=== PATIENT | female | born 1995 | race Caucasian/White ===

== ENCOUNTER 2025-03-23 19:10 | Emergency (ER) | payer BC ==
--- NOTE | 2025-03-23 19:41 | ED ---
Abdominal Pain HPI - General Chief Complaint: Abdominal Pain Stated Complaint: Abd pain Time Seen by Provider: 03/23/25 19:16 Source: patient Mode of arrival: ambulatory Limitations: no limitations - History of Present Illness Initial Comments: 29-year-old female presented with chief complaint of abdominal pain. Patient reports that she had sharp right sided pain that lasted for about 30 minutes. This was a sharp and stabbing pain. She was feeling a bit nauseous while she was having the pain. No diarrhea or constipation or changes in bowel movements. No vomiting. No chest pain or difficulty breathing. No history of abdominal surgeries. Denies . - Related Data Allergies Allergy/AdvReac Type Severity Reaction Status Date / Time latex Allergy Rash/Hives Verified 03/23/25 19:14 Review of Systems ROS Statement: Those systems with pertinent positive or pertinent negative responses have been documented in the HPI. ROS Other: All systems not noted in ROS Statement are negative. Past Medical History Past Medical History: No Reported History History of Any Multi-Drug Resistant Organisms: None Reported Past Surgical History: No Surgical Hx Reported Past Psychological History: No Psychological Hx Reported Smoking Status: Never smoker Past Alcohol Use History: Rare Past Drug Use History: None Reported General Exam Limitations: no limitations General appearance: alert, in no apparent distress Head exam: Present: atraumatic, normocephalic, normal inspection Eye exam: Present: normal appearance, EOMI Neck exam: Present: normal inspection. Absent: meningismus Respiratory exam: Present: normal lung sounds bilaterally. Absent: respiratory distress, wheezes, rales, rhonchi, stridor Cardiovascular Exam: Present: regular rate, normal rhythm, normal heart sounds. Absent: systolic murmur, diastolic murmur, rubs, gallop, clicks GI/Abdominal exam: Present: soft. Absent: distended, tenderness, guarding, rebound, rigid Neurological exam: Present: alert, oriented X3 Psychiatric exam: Present: normal affect, normal mood Skin exam: Present: warm, dry, normal color Course Vital Signs 03/23/25 03/24/25 19:12 01:00 Temperature 98.2 F 98.7 F Pulse Rate 84 66 Respiratory 18 16 Rate Blood Pressure 143/86 110/83 O2 Sat by Pulse 100 98 Oximetry Medical Decision Making - Medical Decision Making Was pt. sent in by a medical professional or institution (, PA, [employer]PERATOR, urgent care, hospital, or jail...) When possible be specific @ -No Did you speak to anyone other than the patient for history (EMS, parent, family, police, friend...)? What history was obtained from this source @ -No Did you review nursing and triage notes (agree or disagree)? Why? @ -I reviewed and agree with nursing and triage notes Were old charts reviewed (outside hosp., previous admission, EMS record, old EKG, old radiological studies, urgent care reports/EKG's, jail records)? Report findings @ -No old charts were reviewed Differential Diagnosis (chest pain, altered mental status, abdominal pain women, abdominal pain men, vaginal bleeding, weakness, fever, dyspnea, syncope, headache, dizziness, GI bleed, back pain, seizure, CVA, palpatations, mental health, musculoskeletal)? @ -MDM Differential Abdominal Pain Women: Appendicitis, Cholecystitis, diverticulosis, ischemic bowel, pancreatitis, hepatitis, UTI, gastroenteritis, AAA, incarcerated hernia, bowel obstruction, constipation, inflammatory bowel, hepatitis, peptic ulcer disease, splenic infarction, perforated viscus, vulvitis, ovarian torsion, PID, kidney stone, placenta abruption... This is not meant to be an all-inclusive list EKG interpreted by me (3pts min.). @ -As above X-rays interpreted by me (1pt min.). @ -None done CT interpreted by me (1pt min.). @ -CT shows heterogenous enhancing soft tissue mass seen in the left adnexa. Given this appearance finding may relate to an ovarian torsion versus other neoplastic lesion. Correlate with clinical evaluation. To evaluate rule out ovarian torsion and pelvic ultrasound recommended. If torsion is ruled out finding will need to be properly characterized for which an MRI abdomen and pelvis with IV contrast would be the best initial study for this. No other acute intra-abdominal/pelvic abnormality identified. U/S interpreted by me (1pt. min.). @ -Ultrasound shows no sonographic evidence for acute right upper quadrant abdominal process Pelvic ultrasound shows left adnexal lesion identified on comparison CT corresponds to a pedunculated left fundal fibroid What testing was considered but not performed or refused? (CT, X-rays, U/S, labs)? Why? @ -None What meds were considered but not given or refused? Why? @ -None Did you discuss the management of the patient with other professionals (professionals i.e. DrSonny, PA, [employer]PERATOR, lab, RT, psych nurse, executive secretary social welfare, delivery director, teacher, ship's electronic warfare officer, nurse case manager)? Give summary @ -Radiologist Dr. Benton called and spoke with me regarding CT findings Was smoking cessation discussed for >3mins.? @ -No Was critical care preformed (if so, how long)? @ -No Were there social determinants of health that impacted care today? How? (Homelessness, low income, unemployed, alcoholism, drug addiction, transportation, low edu. Level, literacy, decrease access to med. care, group home, rehab)? @ -No Was there de-escalation of care discussed even if they declined (Discuss DNR or withdrawal of care, Hospice)? DNR status @ -No What co-morbidities impacted this encounter? (DM, HTN, Smoking, COPD, CAD, Cancer, CVA, ARF, Chemo, Hep., AIDS, mental health diagnosis, sleep apnea, morbid obesity)? @ -None Was patient admitted / discharged? Hospital course, mention meds given and route, prescriptions, significant lab abnormalities, going to OR and other pertinent info. @ -29-year-old female presenting chief complaint of right-sided abdominal pain. History physical examination are conducted. She states that the pain is not present at this time and abdomen is soft, nontender, nondistended. Lab work shows no leukocytosis or anemia. Amylase and lipase are WNL. Urine shows no infectious process or bleeding, there are signs of contamination. Negative hCG. Initially it appeared that the patient was having right upper quadrant pain earlier so ultrasound was obtained which showed no acute process. On reassessment patient clarified that it seems to be more in the right lower quadrant so CT was obtained. It was a concerning left-sided adnexal mass seen on CT we obtained a pelvic ultrasound which was negative for torsion. Showed evidence of a pedunculated fibroid. Patient is educated on all of today's findings. Instructed she follow-up with an [employer] and provided with referral. Follow-up with PCP. Report back to ER with any new or worsening symptoms. Discussed return parameters and answered all questions. Patient conveyed verbal understanding and agreed to the plan. I discussed this case in detail with my attending Dr. John Undiagnosed new problem with uncertain prognosis? @ -No Drug Therapy requiring intensive monitoring for toxicity (Heparin, Nitro, Insulin, Cardizem)? @ -No Were any procedures done? @ -No Diagnosis/symptom? @ -Pelvic pain, fibroid Acute, or Chronic, or Acute on Chronic? @ -Acute Uncomplicated (without systemic symptoms) or Complicated (systemic symptoms)? @ -Uncomplicated Side effects of treatment? @ -No Exacerbation, Progression, or Severe Exacerbation? @ -No Poses a threat to life or bodily function? How? (Chest pain, USA, NH, pneumonia, PE, COPD, DKA, ARF, appy, cholecystitis, CVA, Diverticulitis, Homicidal, Suicidal, threat to staff... and all critical care pts) @ -Unlikely - Lab Data Result diagrams: 03/23/25 19:47 03/23/25 19:47 Lab Results 03/23/25 03/23/25 03/23/25 Range/Units 19:47 19:47 19:47 WBC 7.44 (4.50-10.00) 10*3/uL RBC 4.67 (4.10-5.20) 10*6/uL Hgb 14.2 (12.0-15.0) g/dL Hct 40.4 (37.2-46.3) % MCV 86.5 (80.0-97.0) fL MCH 30.4 (27.0-32.0) pg MCHC 35.1 (32.0-37.0) g/dL Plt Count 334 (140-440) 10*3/uL MPV 10.0 (9.5-12.2) fL Immature Gran % (Auto) 0.1 % Neutrophils % 54.8 % Lymphocytes % 32.1 % Monocytes % 6.6 % Eosinophils % 5.2 % Basophils % 1.2 % Immature Gran # 0.01 (0.00-0.04) 10*3/uL Neutrophils # 4.07 (1.80-7.70) 10*3/uL Lymphocytes # 2.39 (0.90-5.00) 10*3/uL Monocytes # 0.49 (0.20-1.00) 10*3/uL Eosinophils # 0.39 H (0.04-0.35) 10*3/uL Basophils # 0.09 (0.00-0.10) 10*3/uL Sodium (137-145) mmol/L Potassium (3.5-5.1) mmol/L Chloride (98-107) mmol/L Carbon Dioxide (22-30) mmol/L Anion Gap mmol/L BUN (7-17) mg/dL Creatinine (0.52-1.04) mg/dL Est GFR (CKD-EPI)AfAm (>60 ml/min/1.73 sqM) Est GFR (CKD-EPI)NonAf (>60 ml/min/1.73 sqM) Glucose (74-99) mg/dL Plasma Lactic Acid Rivera (0.7-2.0) mmol/L Calcium (8.4-10.2) mg/dL Total Bilirubin (0.2-1.3) mg/dL AST (14-36) U/L ALT (4-34) U/L Alkaline Phosphatase (38-126) U/L Total Protein (6.3-8.2) g/dL Albumin (3.5-5.0) g/dL Amylase (30-110) U/L Lipase (23-300) U/L Urine Color Light Yellow Urine Appearance Clear (Clear) Urine pH 6.5 (5.0-8.0) Ur Specific Robert Lee 1.021 (1.001-1.035) Urine Protein Negative (Negative) Urine Glucose (UA) Negative (Negative) Urine Ketones Negative (Negative) Urine Blood Negative (Negative) Urine Nitrite Negative (Negative) Urine Bilirubin Negative (Negative) Urine Urobilinogen <2.0 (<2.0) mg/dL Ur Leukocyte Esterase Trace H (Negative) Urine RBC 3 (0-5) /hpf Urine WBC 4 (0-5) /hpf Ur Squamous Epith Cells 5 H (0-4) /hpf Urine Bacteria Rare H (None) /hpf Urine Mucus Rare H (None) /hpf Urine HCG, Qual Not Detected (Not Detectd) 03/23/25 03/23/25 Range/Units 19:47 19:47 WBC (4.50-10.00) 10*3/uL RBC (4.10-5.20) 10*6/uL Hgb (12.0-15.0) g/dL Hct (37.2-46.3) % MCV (80.0-97.0) fL MCH (27.0-32.0) pg MCHC (32.0-37.0) g/dL Plt Count (140-440) 10*3/uL MPV (9.5-12.2) fL Immature Gran % (Auto) % Neutrophils % % Lymphocytes % % Monocytes % % Eosinophils % % Basophils % % Immature Gran # (0.00-0.04) 10*3/uL Neutrophils # (1.80-7.70) 10*3/uL Lymphocytes # (0.90-5.00) 10*3/uL Monocytes # (0.20-1.00) 10*3/uL Eosinophils # (0.04-0.35) 10*3/uL Basophils # (0.00-0.10) 10*3/uL Sodium 138 (137-145) mmol/L Potassium 4.1 (3.5-5.1) mmol/L Chloride 102 (98-107) mmol/L Carbon Dioxide 22 (22-30) mmol/L Anion Gap 14 mmol/L BUN 17 (7-17) mg/dL Creatinine 0.67 (0.52-1.04) mg/dL Est GFR (CKD-EPI)AfAm >90 (>60 ml/min/1.73 sqM) Est GFR (CKD-EPI)NonAf >90 (>60 ml/min/1.73 sqM) Glucose 120 H (74-99) mg/dL Plasma Lactic Acid Rivera 1.1 (0.7-2.0) mmol/L Calcium 10.1 (8.4-10.2) mg/dL Total Bilirubin 0.4 (0.2-1.3) mg/dL AST 21 (14-36) U/L ALT 15 (4-34) U/L Alkaline Phosphatase 69 (38-126) U/L Total Protein 7.4 (6.3-8.2) g/dL Albumin 4.6 (3.5-5.0) g/dL Amylase 69 (30-110) U/L Lipase 141 (23-300) U/L Urine Color Urine Appearance (Clear) Urine pH (5.0-8.0) Ur Specific Robert Lee (1.001-1.035) Urine Protein (Negative) Urine Glucose (UA) (Negative) Urine Ketones (Negative) Urine Blood (Negative) Urine Nitrite (Negative) Urine Bilirubin (Negative) Urine Urobilinogen (<2.0) mg/dL Ur Leukocyte Esterase (Negative) Urine RBC (0-5) /hpf Urine WBC (0-5) /hpf Ur Squamous Epith Cells (0-4) /hpf Urine Bacteria (None) /hpf Urine Mucus (None) /hpf Urine HCG, Qual (Not Detectd) Disposition Clinical Impression: Pelvic pain, Fibroid Disposition: HOME SELF-CARE Condition: Good Instructions (If sedation given, give patient instructions): Pelvic Pain in Women (ED) Additional Instructions: It is important that you follow-up with an [employer]ER for further workup of your CT and ultrasound findings. Report back to ER with any new or worsening symptoms. Is patient prescribed a controlled substance at d/c from ED?: No Referrals: None,Stated [Primary Care Provider] - 1-2 days Kennedy Kuo MD [STAFF PHYSICIAN] - 1-2 days Time of Disposition: 00:51
[2025-03-23] MEDS: SODIUM CHLORIDE 0.9% 1,000 ML IV ONE (19:47)
[2025-03-23 20:13] LABS: ALT 15 U/L (4-34); AST 21 U/L (14-36); African American GFR (CKD) >90 (>60 ml/min/1.73 sqM); Albumin 4.6 g/dL (3.5-5.0); Alkaline Phosphatase 69 U/L (38-126); Amylase 69 U/L (30-110); Anion Gap 14 mmol/L; Blood Urea Nitrogen 17 mg/dL (7-17); Calcium 10.1 mg/dL (8.4-10.2); Carbon Dioxide 22 mmol/L (22-30); Chloride 102 mmol/L (98-107); Glucose 120 mg/dL (74-99); Lipase 141 U/L (23-300); Non-African American GFR(CKD) >90 (>60 ml/min/1.73 sqM); Potassium 4.1 mmol/L (3.5-5.1); Sodium 138 mmol/L (137-145); Total Protein 7.4 g/dL (6.3-8.2)
[2025-03-23 20:19] LABS: Basophils # (A) 0.09 10*3/uL (0.00-0.10); Basophils % (A) 1.2 %; Eosinophils # (A) 0.39 10*3/uL (0.04-0.35); Eosinophils % (A) 5.2 %; HCT 40.4 % (37.2-46.3); HGB 14.2 g/dL (12.0-15.0); Lymphocytes # (A) 2.39 10*3/uL (0.90-5.00); Lymphocytes % (A) 32.1 %; MCH 30.4 pg (27.0-32.0); MCHC 35.1 g/dL (32.0-37.0); MCV 86.5 fL (80.0-97.0); Monocytes # (A) 0.49 10*3/uL (0.20-1.00); Monocytes % (A) 6.6 %; Neutrophils # (A) 4.07 10*3/uL (1.80-7.70); Neutrophils % (A) 54.8 %; Platelet Count 334 10*3/uL (140-440); RBC 4.67 10*6/uL (4.10-5.20); RDW 12.1 % (11.5-14.5); WBC 7.44 10*3/uL (4.50-10.00)
[2025-03-23 20:40] LABS: Bacteria,Urine Rare /hpf; Bilirubin,Urine Negative (Negative); Blood,Urine Negative (Negative); Color,Urine Light Yellow; Glucose,Urine (UA) Negative (Negative); Ketones,Urine Negative (Negative); Leukocyte Esterase,Urine Trace (Negative); Mucus,Urine Rare /hpf; Nitrite,Urine Negative (Negative); PH, Urine 6.5 (5.0-8.0); Protein,Urine Negative (Negative); RBC,Urine 3 /hpf (0-5); Specific Gravity,Urine 1.021 (1.001-1.035); Squamous Epithelial Cell,Urine 5 /hpf (0-4); Urobilinogen,Urine <2.0 mg/dL (<2.0); WBC,Urine 4 /hpf (0-5)
--- NOTE | 2025-03-23 20:49 | US ---
EXAMINATION TYPE: US abdomen limited DATE OF EXAM: 03/23/2025 COMPARISON: NONE CLINICAL INDICATION: Female, 29 years old with history of RUQ pain; RUQ pain that has since gone away . TECHNIQUE: Grayscale and color Doppler imaging of the right upper quadrant was performed. FINDINGS: EXAM MEASUREMENTS: Liver Length: 18.1 cm Gallbladder Wall: 0.1 cm CBD: 0.3 cm Right Kidney: 10.7 x 5.1 x 3.8 cm Pancreas: wnl Liver: It is at the upper limits of normal for size and otherwise has unremarkable sonographic appea baljinder. Gallbladder: No stones or wall thickening Evidence for sonographic Ambrosio's sign: neg CBD: wnl Right Kidney: No hydronephrosis or masses seen IMPRESSION: No sonographic evidence for acute right upper quadrant abdominal process. [facility], , 03/23/2025 8:47 PM
--- NOTE | 2025-03-23 22:13 | CT ---
INDICATION: Patient age:Female; 29 years old; Reason for study: RLQ pain; PHH. COMPARISON: Abdominal ultrasound from the same day.. TECHNIQUE: Standard CT of the abdomen and pelvis following the administration of 100 cc of Isovue 3 00 IV contrast material. Coronal and sagittal reformats were performed. One or more CT dose reduction strategies were utilized during this examination. Total DLP administered was 582.6 mGycm. FINDINGS: LOWER CHEST: Unremarkable ABDOMEN LIVER: Unremarkable. GALLBLADDER AND BILE DUCTS: The gallbladder is nondistended with no gross abnormality. No biliary jonny jimy dilatation. PANCREAS: Unremarkable. SPLEEN: Splenule is suggested in the mid abdomen. The spleen otherwise is unremarkable. ADRENAL GLANDS: Unremarkable. KIDNEYS AND URETERS: No evidence of hydronephrosis or renal calculus. The ureters are unremarkable. PELVIS URINARY BLADDER: Incompletely distended but grossly unremarkable. REPRODUCTIVE: In the left upper adnexa there is a heterogenous enhancing soft tissue mass that measur es at least 4.0 x 3.9 x 3.6 cm. There is fluid/endometrial thickening appreciated which may relate to cycle of menstruation. ABDOMEN & PELVIS STOMACH AND BOWEL: Stomach is grossly unremarkable. Small bowel is of normal caliber No evidence of b owel obstruction. PERITONEUM: No evidence of pneumoperitoneum or free fluid. VASCULATURE: No evidence of aortic aneurysm. MUSCULOSKELETAL: No acute osseous abnormalities LYMPH NODES: Unremarkable. SOFT TISSUE/ABDOMINAL WALL: Unremarkable IMPRESSION: There is a heterogenous enhancing soft tissue mass seen in the left adnexa. Given this appearance fi nding may relate to an ovarian torsion versus other neoplastic lesion. Correlate with clinical evalua tion. To evaluate and rule out ovarian torsion a pelvic ultrasound is recommended. If torsion is rule d out finding will need to be properly characterized for which an MRI abdomen and pelvis with IV cont rast will be the best initial study for this. No other acute intra-abdominal/pelvic abnormality ident ified. Findings discussed with ODILIA Carranza at 10:06 PM over the phone on 03/23/[address] Benton. [facility], , 03/23/2025 10:11 PM
--- NOTE | 2025-03-24 00:31 | US ---
Exam: US PELVIS Comparison: CT abdomen and pelvis from today CLINICAL INDICATION: Female, 29 years old with history of pelvic pain; RLQ pain, Abnormal CT TECHNIQUE: Transabdominal (TA). Transabdominal grayscale sonographic images of the pelvis were acquired. Doppler imaging: Color Doppler Images were obtained. Spectral doppler images were obtained. 51 images FINDINGS: Date of LMP: 02/25/2025, G0 EXAM MEASUREMENTS: Uterus: 9.0 x 5.5 x 3.2 cm Endometrial Stripe: 0.8 cm Right Ovary: 3.1 x 2.0 x 1.8 cm Left Ovary: 3.0 x 1.7 x 1.4 cm 1. Uterus: Anteverted Pedunculated fundal left lesion = 4.3 x 4.1 x 3. 7 cm 2. Endometrium: wnl 3. Right Ovary: follicles 4. Left Ovary: follicles Spectral, color and waveform doppler imaging shows good arterial and venous flow within the ovaries; there is no evidence for ovarian torsion. 5. Bilateral Adnexa: no free fluid 6. Posterior cul-de-sac: trace free fluid Impression: Left adnexal lesion identified on comparison CT corresponds to a pedunculated left fundal fibroid.
[2025-03-24 01:01] VITALS: BP 110/83; PULSE 66; RESP 16; TEMP 98.7
== END 2025-03-24 01:00 | disposition home or self-care (01) ==
LOC: EC 19:10
DX: R10.2 Pelvic and perineal pain (principal); Z86.018 Personal history of other benign neoplasm; Z91.040 Latex allergy status
CPT/HCPCS: 36415; 80053; 82150; 83605; 83690; 85025; 81001; 81025; 93975; 76705; 76856; 74177; 99284; 96360; Q9967